=== PATIENT | female | born 1995 | race Caucasian/White ===

== ENCOUNTER 2020-05-01 14:29 | Inpatient (IN) | payer OTHER ==
[~2020-05-01] VITALS: Ht 160 cm; Wt 75.9 kg
[2020-05-01] VITALS (27 sets, daily range): BP systolic 112–167; BP diastolic 58–88; PULSE 75–141; TEMP 97.7–98.9
[2020-05-01] MEDS ORDERED: PROFERRIN ES12 MG PO (15:12)
[2020-05-01] MEDS ORDERED: PRENATAL MVI (15:12)
[2020-05-01 17:11] LABS: BASO % 0.1 % (0.0-2.0); EOS % 0.3 % (0-4.0); GRAN # 11.5 (1.4-6.5); HEMOGLOBIN 11.1 g/dl (12.5-16.0); LYMPH # 1.7 (1.2-3.4); LYMPH % 11.9 % (20.0-51.0); MEAN CELL VOLUME 86 fl (80.0-100.0); MEAN CORPUSCULAR HEMOGLOBIN 29 pg (27.0-31.0); MEAN CORPUSCULAR HGB CONC 33 g/dl (33.0-37.0); MEAN PLATELET VOLUME 11.3 fl (7.4-10.4); MONO # 0.7 (0.1-0.6); MONO % 5.1 % (1.7-9.3); PLATELET COUNT 153 K/mm3 (130-400); RED BLOOD COUNT 3.89 M/mm3 (4.10-5.30); REDCELL DISTRIBUTION WIDTH-CV 13.8 % (11.5-14.5)
[2020-05-01 17:17] LABS: HEMATOCRIT 33.3 % (37.0-47.0)
[2020-05-02] VITALS (7 sets, daily range): BP systolic 107–144; BP diastolic 56–89; PULSE 81–111; TEMP 98.1–98.7
[2020-05-02] MEDS ORDERED: MOTRIN 800800 MG/TAB PO (21:05)
[2020-05-03 10:10] VITALS: BP 125/75; PULSE 93; TEMP 98.1
[2020-05-03 16:15] VITALS: BP 129/86; PULSE 88; TEMP 97.8
== END 2020-05-03 16:30 | disposition home or self-care (01) | DRG 807 ==
LOC: LDRO 14:29 → OB 16:44 → LDR 16:44 → OB 05-02 01:20
PROVIDERS: ADMIT Obstetrics & Gynecology
PROC: 10E0XZZ Delivery of Products of Conception, External Approach (ICD-10-PCS; principal; 2020-05-01)
PROC: 10907ZC Drainage of Amniotic Fluid, Therapeutic from Products of Conception, Via Natural or Artificial Opening (ICD-10-PCS; 2020-05-01)
DX: O99.02 Anemia complicating childbirth (principal); Z37.0 Single live birth; D64.9 Anemia, unspecified; O99.284 Endocrine, nutritional and metabolic diseases complicating childbirth; E28.2 Polycystic ovarian syndrome; Z3A.39 39 weeks gestation of pregnancy
CPT/HCPCS: J2590; J7120